=== PATIENT | male | born 1965 | race Caucasian/White ===

== ENCOUNTER → 2021-02-19 | Outpatient (CLI) | payer OTHER ==
[~2021-02-19] MED LIST: CATAPRES 0.1MG0.1 MG PO; HYDROCODON-ACE1 EAC4 PO; LISINOPRIL20 MG PO; METOPROLOL TART50 MG PO; TYLENOL325 MG PO
== END ==
LOC: OPSV2 10:30
DX: Z01.818 Encounter for other preprocedural examination (principal); G56.02 Carpal tunnel syndrome, left upper limb; R94.31 Abnormal electrocardiogram [ECG] [EKG]
CPT/HCPCS: 80048; 85025; 93005

== ENCOUNTER → 2021-02-21 | Day surgery (SDC) | payer OTHER ==
[~2021-02-21] VITALS: Ht 177.8 cm; Wt 68.5 kg
== END | disposition home or self-care (01) ==
LOC: OR 06:12
DX: G56.02 Carpal tunnel syndrome, left upper limb (principal); I10 Essential (primary) hypertension; M19.90 Unspecified osteoarthritis, unspecified site; F17.210 Nicotine dependence, cigarettes, uncomplicated; Z79.899 Other long term (current) drug therapy
CPT/HCPCS: J1100; J1885; J2001; J2250; J2405; J2704; J3010; J7120

== ENCOUNTER → 2021-08-23 | Outpatient (CLI) | payer OTHER | LOC: RAD 15:49 | DX: R07.89 Other chest pain (principal) | CPT/HCPCS: 71046 ==